=== PATIENT | female | born 2000 | race Caucasian/White ===

== ENCOUNTER 2022-01-10 12:04 | Outpatient (CLI) | payer BC, SELFPAY | END 2022-01-10 12:05 | disposition home or self-care (01) | LOC: RAD 12:05 | PROVIDERS: PCP Family Medicine; Visit Provider Family Medicine | DX: M51.26 Other intervertebral disc displacement, lumbar region (principal); M54.16 Radiculopathy, lumbar region | CPT/HCPCS: 64483; Q9966 ==